=== PATIENT | male | born 1980 | race Caucasian/White ===

== ENCOUNTER 2017-12-08 15:22 | Outpatient (CLI) | payer OTHER ==
--- NOTE | 2017-12-08 15:55 | XRAY Report ---
Reason: PAINFUL R FOREFOOT X 3-4 MONTHS Procedure Date: 12/08/2017 Accession Number: [id number] / [id number] Procedure: XR - Foot 3 View RT CPT Code: FULL RESULT: EXAM: RIGHT FOOT RADIOGRAPHY EXAM DATE: 12/08/2017 03:36 PM. CLINICAL HISTORY: Painful right forefoot x 3-4 months. COMPARISON: None. TECHNIQUE: 3 views. FINDINGS: Bones: Normal. No fractures or bone lesions. Joints: Normal. No subluxations. Soft Tissues: Normal. No soft tissue swelling. IMPRESSION: Normal foot radiography. [facility]
== END 2017-12-08 15:23 | disposition home or self-care (01) ==
LOC: DI 15:22
PROVIDERS: ATTEND Podiatrist
DX: M79.671 Pain in right foot (principal)